=== PATIENT | female | born 1945 | race Two or more races ===

== ENCOUNTER 2023-04-15 11:36 | Inpatient (IN) | payer MEDICARE, OTHER ==
[~2023-04-15] VITALS: Ht 162.6 cm; Wt 97.8 kg
[2023-04-15] MEDS ORDERED: ACETAMINOPHEN 325 MG TAB PO ONE (11:45)
[2023-04-15] MEDS ORDERED: SODIUM CHLORIDE 0.9% 1,000 ML IV ONE ×3 (11:45→13:30)
[2023-04-15 12:27] LABS: Hematocrit 39.5 % (36.0-46.0); Hemoglobin 12.8 g/dL (12.2-16.2); Mean Corpuscular Hemoglobin 30.4 pg (28.0-32.0); Mean Corpuscular Hgb Conc. 32.5 g/dL (32.0-36.0); Mean Corpuscular Volume 93.7 fL (80.0-100.0); Red Blood Cells 4.21 10^6/uL (4.0-5.20); Red Cell Distribution Width 13.7 % (11.8-14.3)
[2023-04-15 12:31] LABS: Band Neutrophils % (manual) 0; Basophils % (manual) 0 (0.0-2.0); Blast Cells 0; Eosinophils % (manual) 0 (0-7); Metamyelocytes % 0; Monocytes % (manual) 0 (0-12); Myelocytes % 0; Promyelocytes % 0; Reactive Lymphocytes 0
[2023-04-15 12:36] LABS: Base Excess -3.8 mmol/L (-2.0-2.0)
[2023-04-15 12:45] LABS: Alanine Aminotransferase 22 U/L (7-40); Alkaline Phosphatase 69 U/L (46-116); Anion Gap 13 (5-15); Aspartate Aminotransferase 23 U/L (13-40); BUN/Creatinine Ratio 14.1 (10.0-20.0); Bilirubin, Total 1.2 mg/dL (0.2-1.0); Blood Urea Nitrogen 18 mg/dL (9-23); Calcium 8.5 mg/dL (8.7-10.4); Carbon Dioxide 21 mmol/L (20-30); Chloride 106 mmol/L (98-107); Glucose 135 mg/dL (74-106); Magnesium 1.5 mg/dL (1.6-2.6); Potassium 3.9 mmol/L (3.5-5.1); Sodium 140 mmol/L (136-145); Total Protein 6.3 g/dL (5.7-8.2)
[2023-04-15 12:46] LABS: Lactic Acid w/Reflex 6.7 mmol/L (0.4-2.0)
[2023-04-15 12:48] LABS: INR 1.06 (0.9-1.15); Partial Thromboplastin Time 20.5 SEC (24.5-34.5); Prothrombin Time 11.1 sec (9.3-11.8)
[2023-04-15 13:01] LABS: Lymphocytes % (manual) 7 (10.0-50.0); Platelet Estimate Adequate
[2023-04-15] MEDS ORDERED: VANCOMYCIN 1GM/250ML 250 ML IV ONE (13:30)
[2023-04-15] MEDS ORDERED: PIPERACILLIN-TAZO 4.5GM 100 ML IV ONE (13:30)
[2023-04-15 14:03] LABS: Rapid Influenza A Negative (Negative); Rapid Influenza B Negative (Negative)
[2023-04-15 14:06] LABS: COVID19 ANTIGEN SOFIA FIA NEGATIVE (NEGATIVE)
[2023-04-15] MEDS: MAGNESIUM SULFATE 1GM/100ML 100 ML IV SCH ×2 (14:15→15:15)
[2023-04-15 16:14] LABS: Urine Bacteria MANY /hpf (None Seen); Urine Blood 2+ /uL (Negative); Urine Clarity Clear (Clear); Urine Color Colorless (Yellow); Urine Protein, UAD 2+ (Negative); Urine Specific Gravity 1.009 (1.001-1.035); Urine Urobilinogen Normal (Negative); Urine WBC 27 /hpf (0 - 5)
[2023-04-15 16:19] VITALS: PULSE 117; O2SAT 98
[2023-04-15] MEDS: NOREPINEPHRINE 8 MG/250ML KIT 250 ML IV SCH (16:30)
[2023-04-15 19:30] VITALS: PULSE 104; RESP 20; O2SAT 95
[2023-04-15] MEDS ORDERED: HYDROcodone-ACET 5/325MG TAB PO PRN (19:30)
[2023-04-15] MEDS ORDERED: MORPHINE SULFATE INJ 2 MG/ml SYRG IV PRN (19:30)
[2023-04-15] MEDS ORDERED: TEMAZEPAM 15 MG CAP PO PRN (19:30)
[2023-04-15] MEDS ORDERED: ACETAMINOPHEN 325 MG TAB PO PRN (19:30)
[2023-04-15] MEDS ORDERED: ONDANSETRON HCL 4 MG/2 ML VIAL IV PRN (19:30)
[2023-04-15] MEDS: SODIUM CHLOR 0.9% PF (SALINE LOCK) 10ML VIAL/SYR IV SCH (22:07)
[2023-04-15] MEDS ORDERED: DEXTROSE (50%) 50ML SYRG IV PRN (22:45)
[2023-04-15] MEDS: SODIUM CHLORIDE 0.9% 1,000 ML IV SCH (22:54)
[2023-04-15 23:21] LABS: Base Excess -6.6 mmol/L (-2.0-2.0)
[2023-04-15] MEDS ORDERED: ETOMIDATE (2MG/ML) 20ML VIAL IV ONE ×2 (23:43→23:45)
[2023-04-15] MEDS ORDERED: MIDAZOLAM DRIP 50 mg/50mL 50 ML IV ONE (23:43)
[2023-04-15] MEDS ORDERED: SUCCINYLCHOLINE CHLORIDE 20 MG/ML 10ML VIAL IV ONE (23:43)
[2023-04-15] MEDS ORDERED: ROCURONIUM 10MG/ML 10ML VIAL IV ONE (23:45)
[2023-04-15] MEDS: MIDAZOLAM DRIP 50 mg/50mL 50 ML IV SCH (23:58)
[2023-04-16] VITALS (93 sets, daily range): BP systolic 73–129; BP diastolic 37–73; PULSE 83–126; RESP 16–25; TEMP 98.8–103.9; O2SAT 97–100
[2023-04-16] MEDS ORDERED: SUCCINYLCHOLINE CHLORIDE 20 MG/ML 10ML VIAL IV ONE
[2023-04-16] MEDS ORDERED: PIPERACILLIN-TAZOB 3.375GM 100 ML IV SCH
[2023-04-16] MEDS: PIPERACILLIN-TAZOB 3.375GM 100 ML IV SCH ×5 (00:42→23:48)
[2023-04-16] MEDS ORDERED: VANCOMYCIN 1GM/250ML 250 ML IV ONE (01:30)
[2023-04-16] MEDS ORDERED: VANCOMYCIN PER PHARMACY 0 MG IV SCH (01:30)
[2023-04-16] MEDS ORDERED: SODIUM CHLORIDE 0.9% 500 ML IV ONE (02:30)
[2023-04-16] MEDS: VASOPRESSIN 20 UNITS in SODIUM CHL 0.9% 99 ML IV SCH ×2 (02:32→13:37)
[2023-04-16] MEDS: MIDAZOLAM DRIP 50 mg/50mL 50 ML IV SCH ×3 (02:35→12:14)
[2023-04-16 03:09] LABS: Base Excess -4.7 mmol/L (-2.0-2.0)
[2023-04-16] MEDS: NOREPINEPHRINE 8 MG/250ML KIT 250 ML IV SCH ×4 (03:38→22:20)
[2023-04-16 04:26] LABS: Basophils # (auto) 0 10 ^3/uL (0-0.2); Basophils % (auto) 0.2 % (0.0-2.0); Eosinophils # (auto) 0 10 ^3/uL (0-0.8); Eosinophils % (auto) 0.1 % (0.0-7.0); Hemoglobin 11.3 g/dL (12.2-16.2); Lymphocytes # (auto) 0.8 10 ^3/uL (0.4-5.4); Lymphocytes % (auto) 4.6 % (10.0-50.0); Mean Corpuscular Hemoglobin 30.1 pg (28.0-32.0); Mean Corpuscular Hgb Conc. 32.4 g/dL (32.0-36.0); Mean Corpuscular Volume 92.9 fL (80.0-100.0); Monocytes # (auto) 0.9 10 ^3/uL (0-1.3); Monocytes % (auto) 4.9 % (0.0-12.0); Neutrophils % (auto) 90.2 % (37.0-80.0); Red Blood Cells 3.77 10^6/uL (4.0-5.20); Red Cell Distribution Width 13.6 % (11.8-14.3); White Blood Cell 17.8 10^3/uL (4.4-10.8)
[2023-04-16 04:37] LABS: Alanine Aminotransferase 25 U/L (7-40); Albumin 3.7 g/dL (3.2-4.8); Alkaline Phosphatase 75 U/L (46-116); Anion Gap 13 (5-15); Aspartate Aminotransferase 78 U/L (13-40); BUN/Creatinine Ratio 10.9 (10.0-20.0); Bilirubin, Total 0.9 mg/dL (0.2-1.0); Blood Urea Nitrogen 20 mg/dL (9-23); Calcium 8.2 mg/dL (8.7-10.4); Carbon Dioxide 20 mmol/L (20-30); Chloride 107 mmol/L (98-107); Glucose 157 mg/dL (74-106); Potassium 3.3 mmol/L (3.5-5.1); Sodium 140 mmol/L (136-145)
[2023-04-16 04:38] LABS: Total Protein 6.2 g/dL (5.7-8.2)
[2023-04-16] MEDS: SODIUM CHLOR 0.9% PF (SALINE LOCK) 10ML VIAL/SYR IV SCH ×3 (05:31→21:14)
[2023-04-16] MEDS: ACCU-CHEK COMFORT CURVE STRIP VI SCH ×4 (06:21→21:18)
[2023-04-16] MEDS: InsuLIN REG 1unit/0.01ml Soln (100units/ml) SC SCH ×4 (06:21→21:16)
[2023-04-16] MEDS ORDERED: VANCOMYCIN 1GM/250ML 250 ML IV SCH (08:00)
[2023-04-16 08:11] LABS: Triglycerides 149 mg/dL (< 150)
[2023-04-16 08:12] LABS: LDL Cholesterol 42 mg/dL (< 100)
[2023-04-16 08:13] LABS: Cholesterol 115 mg/dL (< 200); HDL Cholesterol 39 mg/dL (40-59)
[2023-04-16] MEDS: SODIUM CHLORIDE 0.9% 1,000 ML IV SCH ×2 (08:45→16:30)
[2023-04-16] MEDS ORDERED: POTASSIUM CHL 20MEQ/100ML 100 ML IV SCH (09:45)
[2023-04-16] MEDS: ENOXAPARIN SOD 30 MG/0.3 ML SYRINGE SC SCH (10:12)
[2023-04-16] MEDS: MAGNESIUM SULFATE 1GM/100ML 100 ML IV SCH ×2 (10:13→11:03)
[2023-04-16] MEDS: POTASSIUM CHL 20MEQ/100ML 100 ML IV SCH ×2 (11:00→13:26)
[2023-04-16] MEDS: ACETAMINOPHEN 325 MG TAB PO PRN ×2 (15:07→21:07)
[2023-04-16] MEDS ORDERED: FUROSEMIDE 40 MG/4 ML VIAL IV ONE (15:15)
[2023-04-16] MEDS ORDERED: SODIUM CHLORIDE 0.9% 1,000 ML IV SCH (16:00)
[2023-04-16] MEDS: INSULIN LANTUS (GLARGINE) 1 /0.01ml (100units/ml) SC SCH (21:15)
[2023-04-17] VITALS (114 sets, daily range): BP systolic 83–148; BP diastolic 39–75; PULSE 73–111; RESP 14–22; TEMP 97.7–99.7; O2SAT 95–100
[2023-04-17] MEDS: MIDAZOLAM DRIP 50 mg/50mL 50 ML IV SCH ×4 (00:07→22:39)
[2023-04-17] MEDS: VASOPRESSIN 20 UNITS in SODIUM CHL 0.9% 99 ML IV SCH ×3 (00:44→22:58)
[2023-04-17 04:51] LABS: Hematocrit 36.1 % (36.0-46.0); Hemoglobin 11.7 g/dL (12.2-16.2); Mean Corpuscular Hemoglobin 29.6 pg (28.0-32.0); Mean Corpuscular Hgb Conc. 32.4 g/dL (32.0-36.0); Mean Corpuscular Volume 91.5 fL (80.0-100.0); Red Blood Cells 3.94 10^6/uL (4.0-5.20); Red Cell Distribution Width 13.9 % (11.8-14.3); White Blood Cell 22.1 10^3/uL (4.4-10.8)
[2023-04-17 05:06] LABS: Alanine Aminotransferase 28 U/L (7-40); Albumin 3.4 g/dL (3.2-4.8); Alkaline Phosphatase 101 U/L (46-116); Anion Gap 10 (5-15); Aspartate Aminotransferase 91 U/L (13-40); BUN/Creatinine Ratio 13.5 (10.0-20.0); Bilirubin, Total 0.9 mg/dL (0.2-1.0); Blood Urea Nitrogen 17 mg/dL (9-23); Calcium 8.3 mg/dL (8.7-10.4); Carbon Dioxide 21 mmol/L (20-30); Chloride 109 mmol/L (98-107); Glucose 167 mg/dL (74-106); Potassium 3.3 mmol/L (3.5-5.1); Sodium 140 mmol/L (136-145)
[2023-04-17] MEDS: SODIUM CHLORIDE 0.9% 1,000 ML IV SCH (05:22)
[2023-04-17 05:25] LABS: Basophils % (manual) 0 (0.0-2.0); Blast Cells 0; Eosinophils % (manual) 0 (0-7); Promyelocytes % 0; Reactive Lymphocytes 0
[2023-04-17] MEDS: PIPERACILLIN-TAZOB 3.375GM 100 ML IV SCH ×3 (05:42→17:07)
[2023-04-17] MEDS: NOREPINEPHRINE 8 MG/250ML KIT 250 ML IV SCH ×2 (05:43→14:51)
[2023-04-17] MEDS: SODIUM CHLOR 0.9% PF (SALINE LOCK) 10ML VIAL/SYR IV SCH ×3 (05:44→21:02)
[2023-04-17] MEDS: InsuLIN REG 1unit/0.01ml Soln (100units/ml) SC SCH ×4 (06:53→21:05)
[2023-04-17] MEDS: ACCU-CHEK COMFORT CURVE STRIP VI SCH ×4 (07:21→21:03)
[2023-04-17 07:40] LABS: Band Neutrophils % (manual) 2; Lymphocytes % (manual) 4 (10.0-50.0); Metamyelocytes % 1; Monocytes % (manual) 3 (0-12); Myelocytes % 4; Platelet Estimate Decreased
[2023-04-17 07:40] LABS: Base Excess -6.3 mmol/L (-2.0-2.0)
[2023-04-17] MEDS ORDERED: POTASSIUM CHL 20MEQ/100ML 100 ML IV ONE (09:45)
[2023-04-17] MEDS ORDERED: SODIUM BICARBONATE 8.4 % INJ 50ML VIAL IV ONE (09:45)
[2023-04-17] MEDS: ENOXAPARIN SOD 30 MG/0.3 ML SYRINGE SC SCH (11:02)
[2023-04-17] MEDS: HYDROCORTISONE SOD SUCC 100 MG/2ML INJ VIAL IV SCH ×2 (13:37→21:02)
[2023-04-17] MEDS: CEFTRIAXONE SODIUM 2 GM in D5W 5% 100 ML IV SCH (20:43)
[2023-04-17] MEDS: INSULIN LANTUS (GLARGINE) 1 /0.01ml (100units/ml) SC SCH (21:05)
[2023-04-18] VITALS (112 sets, daily range): BP systolic 84–156; BP diastolic 48–87; PULSE 66–82; RESP 13–23; TEMP 97.3–99; O2SAT 90–100
[2023-04-18] MEDS: SODIUM CHLORIDE 0.9% 1,000 ML IV SCH ×3 (00:55→15:04)
[2023-04-18] MEDS: NOREPINEPHRINE 8 MG/250ML KIT 250 ML IV SCH (02:13)
[2023-04-18 05:01] LABS: Hematocrit 34.1 % (36.0-46.0); Hemoglobin 11.1 g/dL (12.2-16.2); Mean Corpuscular Hemoglobin 29.6 pg (28.0-32.0); Mean Corpuscular Hgb Conc. 32.5 g/dL (32.0-36.0); Mean Corpuscular Volume 90.9 fL (80.0-100.0); Red Blood Cells 3.75 10^6/uL (4.0-5.20); Red Cell Distribution Width 13.8 % (11.8-14.3); White Blood Cell 22.1 10^3/uL (4.4-10.8)
[2023-04-18 05:18] LABS: Band Neutrophils % (manual) 0; Basophils % (manual) 0 (0.0-2.0); Blast Cells 0; Eosinophils % (manual) 0 (0-7); Metamyelocytes % 0; Myelocytes % 0; Promyelocytes % 0; Reactive Lymphocytes 0
[2023-04-18] MEDS: MIDAZOLAM DRIP 50 mg/50mL 50 ML IV SCH (05:27)
[2023-04-18 05:34] LABS: Anion Gap 8 (5-15); Carbon Dioxide 24 mmol/L (20-30); Chloride 109 mmol/L (98-107); Potassium 3.5 mmol/L (3.5-5.1); Sodium 141 mmol/L (136-145)
[2023-04-18 05:35] LABS: Calcium 8.5 mg/dL (8.7-10.4)
[2023-04-18 05:40] LABS: BUN/Creatinine Ratio 13.5 (10.0-20.0); Blood Urea Nitrogen 14 mg/dL (9-23); Glucose 173 mg/dL (74-106)
[2023-04-18 05:41] LABS: Magnesium 1.8 mg/dL (1.6-2.6)
[2023-04-18 05:42] LABS: Phosphorus 2.5 mg/dL (2.4-5.1)
[2023-04-18] MEDS: HYDROCORTISONE SOD SUCC 100 MG/2ML INJ VIAL IV SCH ×3 (06:24→22:29)
[2023-04-18] MEDS: ACCU-CHEK COMFORT CURVE STRIP VI SCH ×4 (06:24→22:23)
[2023-04-18] MEDS: SODIUM CHLOR 0.9% PF (SALINE LOCK) 10ML VIAL/SYR IV SCH ×3 (06:24→22:30)
[2023-04-18] MEDS: InsuLIN REG 1unit/0.01ml Soln (100units/ml) SC SCH ×4 (06:30→22:30)
[2023-04-18 07:20] LABS: Base Excess -4.5 mmol/L (-2.0-2.0)
[2023-04-18 08:07] LABS: Lymphocytes % (manual) 6 (10.0-50.0); Monocytes % (manual) 4 (0-12)
[2023-04-18 08:08] LABS: Platelet Estimate Decreased
[2023-04-18] MEDS ORDERED: FUROSEMIDE 20 MG/2 ML VIAL IV ONE (09:15)
[2023-04-18] MEDS ORDERED: CEFTRIAXONE SODIUM 2 GM in D5W 5% 100 ML IV SCH (10:00)
[2023-04-18] MEDS: VASOPRESSIN 20 UNITS in SODIUM CHL 0.9% 99 ML IV SCH ×2 (10:05→21:12)
[2023-04-18] MEDS: ENOXAPARIN SOD 30 MG/0.3 ML SYRINGE SC SCH (11:18)
[2023-04-18] MEDS: CEFTRIAXONE SODIUM 2 GM in D5W 5% 100 ML IV SCH (11:19)
[2023-04-18] MEDS: POTASSIUM CHL 20MEQ/100ML 100 ML IV SCH ×2 (11:20→13:01)
[2023-04-18] MEDS: INSULIN LANTUS (GLARGINE) 1 /0.01ml (100units/ml) SC SCH (22:33)
[2023-04-19] VITALS (74 sets, daily range): BP systolic 101–179; BP diastolic 47–97; PULSE 63–121; RESP 14–31; TEMP 98.1–99.5; O2SAT 97–100
[2023-04-19 04:09] LABS: Basophils # (auto) 0 10 ^3/uL (0-0.2); Basophils % (auto) 0.1 % (0.0-2.0); Eosinophils # (auto) 0 10 ^3/uL (0-0.8); Hematocrit 33.1 % (36.0-46.0); Lymphocytes # (auto) 0.7 10 ^3/uL (0.4-5.4); Lymphocytes % (auto) 5.3 % (10.0-50.0); Mean Corpuscular Hemoglobin 30.6 pg (28.0-32.0); Mean Corpuscular Hgb Conc. 33.4 g/dL (32.0-36.0); Mean Corpuscular Volume 91.7 fL (80.0-100.0); Monocytes # (auto) 0.6 10 ^3/uL (0-1.3); Neutrophils # (auto) 11.2 10 ^3/uL (1.6-8.6); Neutrophils % (auto) 89.6 % (37.0-80.0); Nucleated Red Blood Cells % 0.1 %; Red Blood Cells 3.61 10^6/uL (4.0-5.20); Red Cell Distribution Width 13.8 % (11.8-14.3); White Blood Cell 12.5 10^3/uL (4.4-10.8)
[2023-04-19 04:17] LABS: Chloride 113 mmol/L (98-107); Potassium 3.2 mmol/L (3.5-5.1)
[2023-04-19 04:18] LABS: Anion Gap 8 (5-15); Calcium 8.8 mg/dL (8.5-10.1); Carbon Dioxide 25 mmol/L (20-30)
[2023-04-19 04:23] LABS: BUN/Creatinine Ratio 14.4 (10.0-20.0); Blood Urea Nitrogen 15 mg/dL (9-23); Glucose 151 mg/dL (74-106)
[2023-04-19 04:36] LABS: Sodium 146 mmol/L (136-145)
[2023-04-19] MEDS: HYDROCORTISONE SOD SUCC 100 MG/2ML INJ VIAL IV SCH ×3 (05:40→21:17)
[2023-04-19] MEDS: SODIUM CHLOR 0.9% PF (SALINE LOCK) 10ML VIAL/SYR IV SCH ×3 (05:40→21:17)
[2023-04-19] MEDS: SODIUM CHLORIDE 0.9% 1,000 ML IV SCH (05:40)
[2023-04-19] MEDS: ACCU-CHEK COMFORT CURVE STRIP VI SCH ×4 (05:55→21:21)
[2023-04-19] MEDS: InsuLIN REG 1unit/0.01ml Soln (100units/ml) SC SCH ×4 (05:58→21:19)
[2023-04-19] MEDS: SOD CHL 0.45% 1,000 ML IV SCH ×2 (06:25→17:25)
[2023-04-19 07:38] LABS: Base Excess -0.9 mmol/L (-2.0-2.0)
[2023-04-19] MEDS: MIDAZOLAM DRIP 50 mg/50mL 50 ML IV SCH ×2 (07:45→08:50)
[2023-04-19] MEDS: VASOPRESSIN 20 UNITS in SODIUM CHL 0.9% 99 ML IV SCH ×2 (08:19→08:50)
[2023-04-19] MEDS: NOREPINEPHRINE 8 MG/250ML KIT 250 ML IV SCH (08:50)
[2023-04-19] MEDS: POTASSIUM CHL 20MEQ/100ML 100 ML IV SCH ×4 (09:41→17:24)
[2023-04-19] MEDS: CEFTRIAXONE SODIUM 2 GM in D5W 5% 100 ML IV SCH (09:41)
[2023-04-19] MEDS: PANTOPRAZOLE 40 MG/10 ML VIAL INJ IV SCH (09:48)
[2023-04-19] MEDS: ENOXAPARIN SOD 40 MG/0.4 ML SYRINGE SC SCH ×3 (10:00→18:53)
[2023-04-19] MEDS ORDERED: hydrALAZINE HCL 20 MG/ML VL IV PRN (16:30)
[2023-04-19] MEDS ORDERED: Glucerna 1.2 Cal 1Liter BOTTLE GT SCH (17:45)
[2023-04-19] MEDS: INSULIN LANTUS (GLARGINE) 1 /0.01ml (100units/ml) SC SCH (21:21)
[2023-04-20] VITALS (62 sets, daily range): BP systolic 107–166; BP diastolic 56–88; PULSE 76–113; RESP 12–28; TEMP 98.5–99.5; O2SAT 95–100
[2023-04-20] MEDS: MIDAZOLAM DRIP 50 mg/50mL 50 ML IV SCH ×3 (03:45→23:35)
[2023-04-20 04:09] LABS: Chloride 110 mmol/L (98-107); Sodium 145 mmol/L (136-145)
[2023-04-20 04:10] LABS: Anion Gap 8 (5-15); Carbon Dioxide 27 mmol/L (20-30)
[2023-04-20 04:11] LABS: Calcium 8.8 mg/dL (8.7-10.4)
[2023-04-20 04:14] LABS: Basophils # (auto) 0 10 ^3/uL (0-0.2); Basophils % (auto) 0.1 % (0.0-2.0); Eosinophils # (auto) 0 10 ^3/uL (0-0.8); Hematocrit 35.3 % (36.0-46.0); Hemoglobin 11.5 g/dL (12.2-16.2); Lymphocytes # (auto) 0.8 10 ^3/uL (0.4-5.4); Lymphocytes % (auto) 6.6 % (10.0-50.0); Mean Corpuscular Hemoglobin 29.6 pg (28.0-32.0); Mean Corpuscular Hgb Conc. 32.5 g/dL (32.0-36.0); Monocytes # (auto) 1.1 10 ^3/uL (0-1.3); Monocytes % (auto) 9.6 % (0.0-12.0); Neutrophils # (auto) 9.7 10 ^3/uL (1.6-8.6); Neutrophils % (auto) 83.7 % (37.0-80.0); Red Blood Cells 3.88 10^6/uL (4.0-5.20); Red Cell Distribution Width 13.6 % (11.8-14.3); White Blood Cell 11.6 10^3/uL (4.4-10.8)
[2023-04-20 04:15] LABS: BUN/Creatinine Ratio 18.9 (10.0-20.0); Blood Urea Nitrogen 17 mg/dL (9-23); Glucose 151 mg/dL (74-106)
[2023-04-20 05:01] LABS: Potassium 2.9 mmol/L (3.5-5.1)
[2023-04-20] MEDS: HYDROCORTISONE SOD SUCC 100 MG/2ML INJ VIAL IV SCH ×3 (05:51→21:39)
[2023-04-20] MEDS: POTASSIUM CHL 20MEQ/100ML 100 ML IV SCH ×6 (05:52→22:39)
[2023-04-20] MEDS: SODIUM CHLOR 0.9% PF (SALINE LOCK) 10ML VIAL/SYR IV SCH ×3 (05:53→21:49)
[2023-04-20] MEDS: VASOPRESSIN 20 UNITS in SODIUM CHL 0.9% 99 ML IV SCH ×2 (06:09→12:03)
[2023-04-20] MEDS: ACCU-CHEK COMFORT CURVE STRIP VI SCH ×4 (06:22→21:54)
[2023-04-20] MEDS: InsuLIN REG 1unit/0.01ml Soln (100units/ml) SC SCH ×5 (06:24→21:55)
[2023-04-20] MEDS: PANTOPRAZOLE 40 MG/10 ML VIAL INJ IV SCH (07:38)
[2023-04-20] MEDS: CEFTRIAXONE SODIUM 2 GM in D5W 5% 100 ML IV SCH (07:39)
[2023-04-20] MEDS: SOD CHL 0.45% 1,000 ML IV SCH ×2 (07:40→21:57)
[2023-04-20] MEDS: ENOXAPARIN SOD 40 MG/0.4 ML SYRINGE SC SCH (07:41)
[2023-04-20 08:08] LABS: Base Excess 2.6 mmol/L (-2.0-2.0)
[2023-04-20 09:58] LABS: Base Excess 2.1 mmol/L (-2.0-2.0)
[2023-04-20] MEDS ORDERED: IPRATROPIUM BROM 0.5 MG/2.5ML INH SOL ONE (11:06)
[2023-04-20] MEDS ORDERED: ALBUTEROL MEDNEB 2.5 mg/3ml NEB ONE (11:06)
[2023-04-20] MEDS: NOREPINEPHRINE 8 MG/250ML KIT 250 ML IV SCH (12:03)
[2023-04-20] MEDS: ALBUTEROL MEDNEB 2.5 mg/3ml NEB NEB SCH ×2 (18:00→18:16)
[2023-04-20] MEDS: IPRATROPIUM BROM 0.5 MG/2.5ML INH SOL NEB SCH ×2 (18:00→18:16)
[2023-04-20 19:06] LABS: Alanine Aminotransferase 28 U/L (7-40); Albumin 3.9 g/dL (3.2-4.8); Alkaline Phosphatase 110 U/L (46-116); Anion Gap 7 (5-15); Aspartate Aminotransferase 36 U/L (13-40); BUN/Creatinine Ratio 15.7 (10.0-20.0); Blood Urea Nitrogen 13 mg/dL (9-23); Calcium 8.9 mg/dL (8.7-10.4); Carbon Dioxide 29 mmol/L (20-30); Chloride 106 mmol/L (98-107); Glucose 142 mg/dL (74-106); Sodium 142 mmol/L (136-145)
[2023-04-20 19:07] LABS: Bilirubin, Total 0.7 mg/dL (0.2-1.0); Total Protein 6.7 g/dL (5.7-8.2)
[2023-04-20 19:29] LABS: Potassium 2.9 mmol/L (3.5-5.1)
[2023-04-20] MEDS ORDERED: POTASSIUM CHL 20 Meq TABLET PO ONE ×2 (19:45→21:20)
[2023-04-20] MEDS: INSULIN LANTUS (GLARGINE) 1 /0.01ml (100units/ml) SC SCH (21:55)
[2023-04-21] VITALS (54 sets, daily range): BP systolic 108–146; BP diastolic 51–85; PULSE 70–106; RESP 12–30; TEMP 97.9–99.6; O2SAT 89–100
[2023-04-21] MEDS: ALBUTEROL MEDNEB 2.5 mg/3ml NEB NEB SCH ×4 (00:15→18:13)
[2023-04-21 04:12] LABS: Basophils # (auto) 0 10 ^3/uL (0-0.2); Basophils % (auto) 0.3 % (0.0-2.0); Eosinophils # (auto) 0 10 ^3/uL (0-0.8); Eosinophils % (auto) 0.2 % (0.0-7.0); Hematocrit 34.5 % (36.0-46.0); Hemoglobin 11.5 g/dL (12.2-16.2); Lymphocytes # (auto) 1.2 10 ^3/uL (0.4-5.4); Lymphocytes % (auto) 8.8 % (10.0-50.0); Mean Corpuscular Hemoglobin 30.3 pg (28.0-32.0); Mean Corpuscular Hgb Conc. 33.4 g/dL (32.0-36.0); Mean Corpuscular Volume 90.6 fL (80.0-100.0); Monocytes # (auto) 1.4 10 ^3/uL (0-1.3); Monocytes % (auto) 9.9 % (0.0-12.0); Neutrophils # (auto) 11.2 10 ^3/uL (1.6-8.6); Neutrophils % (auto) 80.8 % (37.0-80.0); Red Blood Cells 3.81 10^6/uL (4.0-5.20); Red Cell Distribution Width 13.4 % (11.8-14.3); White Blood Cell 13.8 10^3/uL (4.4-10.8)
[2023-04-21 04:25] LABS: Chloride 106 mmol/L (98-107); Sodium 142 mmol/L (136-145)
[2023-04-21 04:26] LABS: Anion Gap 8 (5-15); Calcium 8.6 mg/dL (8.7-10.4); Carbon Dioxide 28 mmol/L (20-30)
[2023-04-21 04:31] LABS: Blood Urea Nitrogen 13 mg/dL (9-23); Glucose 99 mg/dL (74-106)
[2023-04-21] MEDS: VASOPRESSIN 20 UNITS in SODIUM CHL 0.9% 99 ML IV SCH ×2 (04:47→11:27)
[2023-04-21 05:04] LABS: BUN/Creatinine Ratio 14.9 (10.0-20.0)
[2023-04-21] MEDS: HYDROCORTISONE SOD SUCC 100 MG/2ML INJ VIAL IV SCH ×3 (06:11→21:56)
[2023-04-21] MEDS: InsuLIN REG 1unit/0.01ml Soln (100units/ml) SC SCH ×4 (06:12→21:56)
[2023-04-21] MEDS: ACCU-CHEK COMFORT CURVE STRIP VI SCH ×4 (06:12→21:47)
[2023-04-21] MEDS: SODIUM CHLOR 0.9% PF (SALINE LOCK) 10ML VIAL/SYR IV SCH ×3 (06:16→21:56)
[2023-04-21] MEDS: MIDAZOLAM DRIP 50 mg/50mL 50 ML IV SCH ×2 (07:07→11:28)
[2023-04-21] MEDS: IPRATROPIUM BROM 0.5 MG/2.5ML INH SOL NEB SCH ×3 (07:31→18:10)
[2023-04-21] MEDS: POTASSIUM CHL 20MEQ/100ML 100 ML IV SCH ×2 (07:39→08:34)
[2023-04-21] MEDS: CEFTRIAXONE SODIUM 2 GM in D5W 5% 100 ML IV SCH (07:44)
[2023-04-21] MEDS: PANTOPRAZOLE 40 MG/10 ML VIAL INJ IV SCH (07:44)
[2023-04-21] MEDS: ENOXAPARIN SOD 40 MG/0.4 ML SYRINGE SC SCH (07:44)
[2023-04-21 09:58] LABS: Potassium 4.2 mmol/L (3.5-5.1)
[2023-04-21] MEDS ORDERED: POTASSIUM EFFERVESENT TAB 25 MEQ PO SCH (10:00)
[2023-04-21] MEDS: POTASSIUM EFFERVESENT TAB 25 MEQ PO SCH ×2 (10:00→21:57)
[2023-04-21 10:05] LABS: Magnesium 1.5 mg/dL (1.6-2.6)
[2023-04-21] MEDS: MAGNESIUM SULFATE 1GM/100ML 100 ML IV SCH ×2 (10:57→12:13)
[2023-04-21] MEDS: NOREPINEPHRINE 8 MG/250ML KIT 250 ML IV SCH (11:28)
[2023-04-21] MEDS: SOD CHL 0.45% 1,000 ML IV SCH (11:35)
[2023-04-21] MEDS ORDERED: ALBUTEROL MEDNEB 2.5 mg/3ml NEB ONE (18:04)
[2023-04-21] MEDS: INSULIN LANTUS (GLARGINE) 1 /0.01ml (100units/ml) SC SCH (21:54)
[2023-04-22] VITALS (20 sets, daily range): BP systolic 94–130; BP diastolic 42–79; PULSE 69–90; RESP 14–22; TEMP 98.3–98.6; O2SAT 94–100
[2023-04-22 03:58] LABS: Basophils # (auto) 0 10 ^3/uL (0-0.2); Basophils % (auto) 0.1 % (0.0-2.0); Eosinophils # (auto) 0 10 ^3/uL (0-0.8); Eosinophils % (auto) 0.1 % (0.0-7.0); Hematocrit 23.6 % (36.0-46.0); Hemoglobin 8.5 g/dL (12.2-16.2); Lymphocytes # (auto) 0.6 10 ^3/uL (0.4-5.4); Lymphocytes % (auto) 5.8 % (10.0-50.0); Mean Corpuscular Hemoglobin 32.5 pg (28.0-32.0); Mean Corpuscular Hgb Conc. 36.1 g/dL (32.0-36.0); Mean Corpuscular Volume 90.1 fL (80.0-100.0); Monocytes # (auto) 0.7 10 ^3/uL (0-1.3); Neutrophils # (auto) 9.7 10 ^3/uL (1.6-8.6); Red Blood Cells 2.62 10^6/uL (4.0-5.20); Red Cell Distribution Width 14.3 % (11.8-14.3)
[2023-04-22 04:00] LABS: Chloride 104 mmol/L (98-107); Potassium 3.6 mmol/L (3.5-5.1); Sodium 138 mmol/L (136-145)
[2023-04-22 04:01] LABS: Anion Gap 6 (5-15); Carbon Dioxide 28 mmol/L (20-30)
[2023-04-22 04:02] LABS: Calcium 8.4 mg/dL (8.7-10.4)
[2023-04-22 04:06] LABS: BUN/Creatinine Ratio 15.9 (10.0-20.0); Blood Urea Nitrogen 14 mg/dL (9-23); Glucose 135 mg/dL (74-106)
[2023-04-22] MEDS: ALBUTEROL MEDNEB 2.5 mg/3ml NEB NEB SCH ×2 (06:02→11:39)
[2023-04-22] MEDS: IPRATROPIUM BROM 0.5 MG/2.5ML INH SOL NEB SCH ×2 (06:02→11:39)
[2023-04-22] MEDS: SOD CHL 0.45% 1,000 ML IV SCH (06:20)
[2023-04-22] MEDS: ACCU-CHEK COMFORT CURVE STRIP VI SCH ×2 (06:21→11:24)
[2023-04-22] MEDS: InsuLIN REG 1unit/0.01ml Soln (100units/ml) SC SCH ×2 (06:22→11:27)
[2023-04-22] MEDS: HYDROCORTISONE SOD SUCC 100 MG/2ML INJ VIAL IV SCH (06:24)
[2023-04-22] MEDS: SODIUM CHLOR 0.9% PF (SALINE LOCK) 10ML VIAL/SYR IV SCH (06:24)
[2023-04-22] MEDS: PANTOPRAZOLE 40 MG/10 ML VIAL INJ IV SCH (08:58)
[2023-04-22] MEDS: POTASSIUM EFFERVESENT TAB 25 MEQ PO SCH (09:00)
[2023-04-22] MEDS: CEFTRIAXONE SODIUM 2 GM in D5W 5% 100 ML IV SCH (09:00)
[2023-04-22] MEDS: ENOXAPARIN SOD 40 MG/0.4 ML SYRINGE SC SCH (09:01)
== END 2023-04-22 14:05 | DRG 870 ==
LOC: ER 11:36 → TELE 19:39 → ICU WEST 04-16 01:45
PROVIDERS: ADMIT Student in an Organized Health Care Education/Training Program; ATTEND Student in an Organized Health Care Education/Training Program
PROC: 0BH17EZ Insertion of Endotracheal Airway into Trachea, Via Natural or Artificial Opening (ICD-10-PCS; 2023-04-15)
PROC: 02HV33Z Insertion of Infusion Device into Superior Vena Cava, Percutaneous Approach (ICD-10-PCS; 2023-04-15)
PROC: 5A09357 Assistance with Respiratory Ventilation, Less than 24 Consecutive Hours, Continuous Positive Airway Pressure (ICD-10-PCS; 2023-04-15)
PROC: 5A1955Z Respiratory Ventilation, Greater than 96 Consecutive Hours (ICD-10-PCS; principal; 2023-04-16)
DX: A41.50 Gram-negative sepsis, unspecified (principal); G93.41 Metabolic encephalopathy; I21.A1 Myocardial infarction type 2; J96.01 Acute respiratory failure with hypoxia; R65.21 Severe sepsis with septic shock; G93.1 Anoxic brain damage, not elsewhere classified; N17.9 Acute kidney failure, unspecified; N13.6 Pyonephrosis; Z20.822 Contact with and (suspected) exposure to COVID-19; E66.01 Morbid (severe) obesity due to excess calories; I08.0 Rheumatic disorders of both mitral and aortic valves; I11.0 Hypertensive heart disease with heart failure; I50.9 Heart failure, unspecified; B96.20 Unspecified Escherichia coli [E. coli] as the cause of diseases classified elsewhere; E83.39 Other disorders of phosphorus metabolism; E87.6 Hypokalemia; E11.65 Type 2 diabetes mellitus with hyperglycemia; N20.0 Calculus of kidney; Z87.891 Personal history of nicotine dependence; Z79.4 Long term (current) use of insulin; Z68.37 Body mass index [BMI] 37.0-37.9, adult
CPT/HCPCS: 36415; 36600; 70450; 71045; 76700; 80048; 80053; 80061; 81001; 82805; 82962; 83036; 83605; 83735; 83880; 84100; 84132; 84443; 84484; 85007; 85025; 85027; 85610; 85730; 87040; 87070; 87077; 87081; 87086; 87088; 87186; 87205; 87426; 87804; 93005; 93306; 94002; 94003; 94640; 94660; 95819; 97110; 97116; 97163; 97530; C9113; G0378; J0330; J0696; J1815; J2250; J2405; J2543; J3480; J7060

== ENCOUNTER 2024-03-01 21:58 | Emergency (ER) | payer OTHER ==
[~2024-03-01] VITALS: Ht 162.6 cm; Wt 72.7 kg
[2024-03-01] MEDS: ACETAMINOPHEN 325 MG TAB PO ONE (22:28)
[2024-03-01 22:35] LABS: Basophils # (auto) 0.1 10 ^3/uL (0-0.2); Basophils % (auto) 0.5 % (0.0-2.0); Eosinophils # (auto) 0 10 ^3/uL (0-0.8); Hematocrit 36.1 % (36.0-46.0); Hemoglobin 12.4 g/dL (12.2-16.2); Lymphocytes # (auto) 1.5 10 ^3/uL (0.4-5.4); Lymphocytes % (auto) 10.7 % (10.0-50.0); Mean Corpuscular Hemoglobin 30.8 pg (28.0-32.0); Mean Corpuscular Hgb Conc. 34.2 g/dL (32.0-36.0); Mean Corpuscular Volume 89.9 fL (80.0-100.0); Monocytes # (auto) 1.5 10 ^3/uL (0-1.3); Monocytes % (auto) 10.4 % (0.0-12.0); Neutrophils # (auto) 10.9 10 ^3/uL (1.6-8.6); Neutrophils % (auto) 78.4 % (37.0-80.0); Platelet Count (auto) 185 10^3/uL (140-450); Red Blood Cells 4.01 10^6/uL (4.0-5.20); Red Cell Distribution Width 13.6 % (11.8-14.3)
[2024-03-01 22:52] LABS: Chloride 101 mmol/L (98-107); Potassium 3.6 mmol/L (3.5-5.1); Sodium 136 mmol/L (136-145)
[2024-03-01 22:53] LABS: Anion Gap 12 (5-15); Calcium 9.9 mg/dL (8.7-10.4); Carbon Dioxide 23 mmol/L (20-30)
[2024-03-01 22:58] LABS: BUN/Creatinine Ratio 14.6 (10.0-20.0); Blood Urea Nitrogen 19 mg/dL (9-23); Glucose 138 mg/dL (74-106)
[2024-03-01 23:20] LABS: COVID19 ANTIGEN SOFIA FIA NEGATIVE (NEGATIVE); Rapid Influenza A Negative (Negative); Rapid Influenza B Negative (Negative)
[2024-03-01 23:30] VITALS: PULSE 103; RESP 15; TEMP 100; O2SAT 94
[2024-03-02 01:58] LABS: Urine Bacteria FEW /hpf (None Seen); Urine Blood 1+ /uL (Negative); Urine Clarity Turbid (Clear); Urine Color Colorless (Yellow); Urine Mucus FEW (None Seen); Urine Protein, UAD 1+ (Negative); Urine Urobilinogen Normal (Negative); Urine WBC 202 /hpf (0 - 5); Urine WBC Clumps PRESENT /hpf (None Seen); Urine pH 5.5 (5.0-9.0)
[2024-03-02] MEDS ORDERED: NITR100C6 PO (02:13)
[2024-03-02 02:30] VITALS: BP 146/70; PULSE 94; RESP 16; O2SAT 96
[2024-03-02] MEDS: cefTRIAXone SOD 1,000 MG VL IM ONE (02:39)
== END 2024-03-02 02:50 | disposition home or self-care (01) ==
LOC: ER 21:58
DX: N39.0 Urinary tract infection, site not specified (principal); E11.9 Type 2 diabetes mellitus without complications; I10 Essential (primary) hypertension; Z20.822 Contact with and (suspected) exposure to COVID-19
CPT/HCPCS: 36415; 80048; 81001; 82962; 85025; 87426; 87804; 96372; 99283; J0696